=== PATIENT | female | born 1945 | race Two or more races ===

== ENCOUNTER 2018-06-10 14:00 | Inpatient (IN) | payer OTHER ==
[~2018-06-10] VITALS: Ht 152.4 cm; Wt 78.0 kg
[2018-06-10] MEDS ORDERED: [UNRECOGNIZED DRUG - OTHER] PO (18:44)
[2018-06-10] MEDS ORDERED: SYNTHROID50 MCG PO (18:45)
[2018-06-10] MEDS ORDERED: SYNTHR PO (18:45)
[2018-06-10] MEDS ORDERED: PROTONIX40 M1 PO (18:45)
[2018-06-10] MEDS ORDERED: ZIAC 5-6.25 MG1 EACH PO (18:46)
[2018-06-10] MEDS ORDERED: ASPIR 8181 MG PO (18:46)
[2018-06-10] MEDS ORDERED: [UNRECOGNIZED DRUG - OTHER] PO (18:47)
[2018-06-10] MEDS ORDERED: LIPITO PO (18:47)
[2018-06-10] MEDS ORDERED: OSTERA TABLET1 EACH PO (18:48)
[2018-06-10] MEDS ORDERED: CYMBALTA30 MG PO (18:48)
[2018-06-10] MEDS ORDERED: NORFLEX PO (18:49)
[2018-06-10] MEDS ORDERED: GABAPENTIN PO (18:49)
[2018-06-10] MEDS ORDERED: FOLIC ACID1 MG PO (18:50)
[2018-06-10] MEDS ORDERED: CATFLAN PO (18:50)
[2018-06-19] MEDS ORDERED: GABAPENTIN800 MG PO (12:02)
[2018-06-19] MEDS ORDERED: DOCUSATE SODIU100 MG PO (12:02)
[2018-06-19] MEDS ORDERED: AMOX-CLAV 875-1 EACH PO (12:03)
[2018-06-19] MEDS ORDERED: CLONAZEPAM1 MG PO (12:04)
[2018-06-19] MEDS ORDERED: PERCOCET 5-3251 EACH PO (12:04)
== END 2018-06-19 17:08 | disposition home or self-care (01) | DRG 455 ==
LOC: RECOVERY 06-11 14:00 → O/R 06-18 06:06 → SURH 06-18 06:06 → MEDI 06-18 13:46 → SURH 06-19 17:08
PROVIDERS: Orthopaedic Surgery Orthopaedic Surgery of the Spine
PROC: 0SG0071 Fusion of Lumbar Vertebral Joint with Autologous Tissue Substitute, Posterior Approach, Posterior Column, Open Approach (ICD-10-PCS; 2018-06-18)
PROC: 0ST20ZZ Resection of Lumbar Vertebral Disc, Open Approach (ICD-10-PCS; 2018-06-18)
PROC: 0SG00AJ Fusion of Lumbar Vertebral Joint with Interbody Fusion Device, Posterior Approach, Anterior Column, Open Approach (ICD-10-PCS; 2018-06-18)
PROC: 07DS3ZZ Extraction of Vertebral Bone Marrow, Percutaneous Approach (ICD-10-PCS; 2018-06-18)
PROC: 4A12X4Z Monitoring of Cardiac Electrical Activity, External Approach (ICD-10-PCS; 2018-06-18)
PROC: 0SG00A0 Fusion of Lumbar Vertebral Joint with Interbody Fusion Device, Anterior Approach, Anterior Column, Open Approach (ICD-10-PCS; principal; 2018-06-18 16:45)
DX: M48.061 Spinal stenosis, lumbar region without neurogenic claudication (principal); M43.16 Spondylolisthesis, lumbar region; M51.16 Intervertebral disc disorders with radiculopathy, lumbar region; I10 Essential (primary) hypertension; E03.8 Other specified hypothyroidism